=== PATIENT | male | born 1975 | race Caucasian/White ===

== ENCOUNTER 2017-01-24 08:17 | Emergency (ER) | payer SELFPAY ==
[2017-01-24 09:16] VITALS: BP 173/106
--- NOTE | 2017-01-27 15:43 | ER ---
DATE SEEN: 01/24/2017 TIME SEEN: The patient was seen at 0833 hours. 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 He stopped taking his blood pressure medicine approximately 4 months ago. No history of TB exposure. ALLERGIES: None. PAST MEDICAL HISTORY: Diabetes negative, heart disease negative, hypertension positive, asthma positive. SOCIAL HISTORY: Pack-a-day smoker. Alcohol negative. Illicit drugs negative, but years ago was heavy into drugs and had problems with opiate addiction. REVIEW OF SYSTEMS: Negative except for notes his hips are kind of sore. He attributes that to lying and sleeping on an air mattress. No history of recent lightheadedness, dizziness, chest pain, irregular heartbeat, near syncope, abdominal discomfort, nausea, vomiting, diarrhea, constipation, complaints, frequency, urgency, dysuria, no history of HIV or HIV exposure. He states his tattoos are done in a sterile environment. He has history of kidney stones. Ten different times, he had passed kidney stones. Last kidney stone was passed in the last 6 months. Does not have kidney discomfort now. PHYSICAL EXAMINATION: GENERAL: Unshaven pleasant fellow, very polite. HEENT: Without abnormality. Pharynx fair dentition. Mild accessary muscle breathing. No thyromegaly or masses in neck. No cervical adenopathy. HEART: Musical inspiratory and expiratory rhonchi. Occasional rales. S1, S2. No murmur. Regular rate and rhythm. ABDOMEN: Soft. No hepatosplenomegaly, guarding, or discomfort. Bowel sounds normal. EXTREMITIES: Without abnormality of the vascular structures and without edema. NEURO: Normal. Deep tendon reflexes in upper and lower extremities symmetrical. Cranial nerves 2 through 12 intact. Oriented x3. Gait appropriate. No dizziness. VITAL SIGNS: Blood pressure 158/123, repeat blood pressure 173/106; heart rate 119 initially now down to 114; respirations 24; oxygen saturation 94%; temperature is 37.2. He has mild tracheal tug, mild accessary muscle use, prominent carotid pulsations in neck. No jugular venous distention. ASSESSMENT: 1. Bronchitis and/or pneumonia. 2. Chronic obstructive pulmonary disease/emphysema. 3. Chronic cigarette use. 4. 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 5. He has pinpoint pupils - difficult to know if he is still using medication. The latter would suggest he is still abusing narcotics, but I did not perform a urine drug screen. 6. Pneumonitis with moist musical inspiratory and expiratory sonorous rales. Suggestion of bronchitis, bronchiolitis and/or pneumonia. It is indeterminate it is viral or a bacterial-mediated process. 7. Hypertension, extensive, untreated. PLAN: 1. The patient is advised, I do not know if it is viral or bacterial illness without doing test and he would prefer not doing test, would like to be treated most economically. Consequently, chest x-rays not performed. CBC not performed. Viral influenza test not performed. 2. Trial of Z-Agustín. 3. Drink 2 quarts of fluid a day. 4. Desist from smoking. 5. Treat his hypertension with hydrochlorothiazide 25 mg daily. 6. Follow up with doctor in a week, 7 to 14 days, earlier if worse. 7. The patient is informed that his high blood pressures are very significant and he has risk for potential aneurysm, vascular complications, aneurysm, stroke, myocardial infarction, or significant renal disease. /[id number] MUKESH/NELL
== END 2017-01-24 09:15 | disposition home or self-care (01) ==
LOC: FB.ED 08:17
DX: J18.9 Pneumonia, unspecified organism (principal); I10 Essential (primary) hypertension; J43.9 Emphysema, unspecified; A52.19 Other symptomatic neurosyphilis; J45.909 Unspecified asthma, uncomplicated; E11.9 Type 2 diabetes mellitus without complications; F17.210 Nicotine dependence, cigarettes, uncomplicated
CPT/HCPCS: 99283